=== PATIENT | male | born 1955 | race Caucasian/White ===

== ENCOUNTER 2024-11-17 12:40 | Inpatient (IN) | payer BC, MEDICARE ==
[~2024-11-17] VITALS: Wt 65.5 kg
[2024-11-17 12:40] VITALS: BP 171/89
[2024-11-17] MEDS ORDERED: Polyethylene Glycol 3350 Powder 17 GM PACKET PO PRN (13:00)
[2024-11-17] MEDS ORDERED: Docusate Sodium 100 MG CAP PO PRN (13:15)
[2024-11-17] MEDS ORDERED: Acetaminophen 500 MG TAB PO PRN (13:15)
[2024-11-17] MEDS ORDERED: NORVASC 5MG5 MG/TAB PO (14:37)
[2024-11-17] MEDS ORDERED: ASPIRIN E.C. 8181 MG (14:39)
[2024-11-17] MEDS ORDERED: CLOPIDOGREL PO (14:40)
[2024-11-17] MEDS ORDERED: INSULIN AS100 UNIT/4 (14:51)
[2024-11-17] MEDS ORDERED: HUMALOG KWIKPEN (14:53)
[2024-11-17] MEDS ORDERED: INSULIN 75/2100 U/ML SQ (15:02)
[2024-11-17] MEDS ORDERED: GLUCOPHAGE PO (15:08)
[2024-11-17] MEDS ORDERED: SODIUM CHLORIDE 0.9% (15:13)
[2024-11-17] MEDS ORDERED: ACETAMINOPHEN325 M1 (15:16)
[2024-11-17] MEDS ORDERED: DAPTOMYCIN (15:22)
[2024-11-17] MEDS ORDERED: Glucagon 1 MG VIAL IM PRN (15:30)
[2024-11-17] MEDS ORDERED: Dextrose (Glucose) 15 GM (4 x 3.75 GM) Chewable TAB PACK PO PRN (15:30)
[2024-11-17] MEDS ORDERED: Dextrose 50% Water 25 GM/50 ML SYRINGE IV PRN (15:30)
[2024-11-17] MEDS ORDERED: Insulin Lispro (HumaLOG) SQ SCH (17:00)
[2024-11-17] MEDS ORDERED: ERTAPENEM IV SCH (17:00)
[2024-11-17] MEDS ORDERED: WATER FOR INJECTION STERILE IV SCH (17:00)
[2024-11-17 19:57] VITALS: BP 154/78
[2024-11-17] MEDS ORDERED: metFORMIN 500 MG TAB PO SCH (21:00)
[2024-11-17] MEDS ORDERED: Insulin NPH/REG (NovoLIN 70/30) SQ SCH (21:00)
[2024-11-18 06:06] LABS: ALBUMIN 3.6 g/dL (3.4-4.8)
[2024-11-18 06:07] LABS: BASO # 0.02 K/mm3 (0.02-0.10); EOS # 0.18 K/mm3 (0.04-0.40); EOS % 1.5 % (0.0-4.0); HEMATOCRIT 35.8 % (42.0-52.0); HEMOGLOBIN 11.4 g/dL (13.5-18.0); LYMPH# 1.33 K/mm3 (1.50-4.00); MEAN CELL VOLUME 88 fl (78-100); MEAN CORPUSCULAR HEMOGLOBIN 28 pg (27-31); MEAN CORPUSCULAR HGB CONC 32 g/dL (33-37); MONO # 0.78 K/mm3 (0.20-0.80); NEU # 9.86 K/mm3 (1.40-6.50); PLATELET COUNT 504 K/mm3 (130-400); RED BLOOD COUNT 4.05 M/mm3 (4.20-5.60); RED CELL DISTRIBUTION WIDTH 14.2 % (11.5-14.5); WHITE BLOOD COUNT 12.2 K/mm3 (4.8-10.8)
[2024-11-18 06:08] LABS: CALCIUM 9.4 mg/dL (8.3-10.5)
[2024-11-18 06:09] LABS: TOTAL PROTEIN 7.2 g/dL (6.2-8.1)
[2024-11-18 06:15] LABS: TOTAL BILIRUBIN 0.1 mg/dL (0.2-1.2)
[2024-11-18 08:24] VITALS: BP 110/62
[2024-11-18] MEDS ORDERED: Clopidogrel 75 MG TAB PO SCH (09:00)
[2024-11-18] MEDS ORDERED: Insulin NPH/REG (NovoLIN 70/30) SQ SCH (09:00)
[2024-11-18] MEDS ORDERED: amLODIPine 5 MG TAB PO SCH (09:00)
[2024-11-18] MEDS ORDERED: DAPTOmycin 500 MG in NS 10 ML IV SCH (15:00)
[2024-11-18 20:08] VITALS: BP 133/71
[2024-11-19 07:31] VITALS: BP 100/58
[2024-11-19] MEDS ORDERED: Multivitamin TAB PO SCH (09:00)
[2024-11-19] MEDS ORDERED: Multimineral/Multivitamin Oral Soln 1 DOSE/15 ML PO SCH (09:00)
[2024-11-19 19:31] VITALS: BP 114/56
[2024-11-20 06:16] LABS: BASO # 0.02 K/mm3 (0.02-0.10); EOS # 0.27 K/mm3 (0.04-0.40); EOS % 3.2 % (0.0-4.0); HEMATOCRIT 35.8 % (42.0-52.0); HEMOGLOBIN 11.4 g/dL (13.5-18.0); LYMPH# 1.82 K/mm3 (1.50-4.00); MEAN CELL VOLUME 88 fl (78-100); MEAN CORPUSCULAR HEMOGLOBIN 28 pg (27-31); MEAN CORPUSCULAR HGB CONC 32 g/dL (33-37); NEU # 5.66 K/mm3 (1.40-6.50); PLATELET COUNT 457 K/mm3 (130-400); RED BLOOD COUNT 4.06 M/mm3 (4.20-5.60); RED CELL DISTRIBUTION WIDTH 14.3 % (11.5-14.5); WHITE BLOOD COUNT 8.5 K/mm3 (4.8-10.8)
[2024-11-20 06:25] LABS: ALBUMIN 3.6 g/dL (3.4-4.8)
[2024-11-20 06:26] LABS: CALCIUM 9.4 mg/dL (8.3-10.5)
[2024-11-20 06:27] LABS: TOTAL PROTEIN 6.8 g/dL (6.2-8.1)
[2024-11-20 06:29] LABS: TOTAL BILIRUBIN 0.2 mg/dL (0.2-1.2)
[2024-11-20 07:00] VITALS: BP 113/64
[2024-11-20 19:10] VITALS: BP 135/70
[2024-11-21 07:00] VITALS: BP 118/70
[2024-11-21 19:30] VITALS: BP 143/69
[2024-11-22 08:22] VITALS: BP 113/64
[2024-11-22 19:00] VITALS: BP 124/63
[2024-11-22] MEDS ORDERED: Insulin Lispro (HumaLOG) SQ SCH (21:00)
[2024-11-23 07:00] VITALS: BP 135/71
[2024-11-23 19:00] VITALS: BP 126/66
[2024-11-24 07:00] VITALS: BP 127/66
[2024-11-24] MEDS ORDERED: Lidocaine 2% Jelly 5 GM TUBE TOP ONE (10:16)
[2024-11-24 19:00] VITALS: BP 105/57
[2024-11-25 07:00] VITALS: BP 109/61
[2024-11-25 08:18] LABS: BASO # 0.03 K/mm3 (0.02-0.10); EOS # 0.28 K/mm3 (0.04-0.40); EOS % 3.9 % (0.0-4.0); HEMATOCRIT 33.5 % (42.0-52.0); HEMOGLOBIN 10.5 g/dL (13.5-18.0); LYMPH# 1.78 K/mm3 (1.50-4.00); MEAN CELL VOLUME 89 fl (78-100); MEAN CORPUSCULAR HEMOGLOBIN 28 pg (27-31); MEAN CORPUSCULAR HGB CONC 31 g/dL (33-37); MEAN PLATELET VOLUME 10.1 fl (7.4-10.4); MONO # 0.66 K/mm3 (0.20-0.80); NEU # 4.33 K/mm3 (1.40-6.50); PLATELET COUNT 351 K/mm3 (130-400); RED BLOOD COUNT 3.77 M/mm3 (4.20-5.60); RED CELL DISTRIBUTION WIDTH 14.3 % (11.5-14.5); WHITE BLOOD COUNT 7.1 K/mm3 (4.8-10.8)
[2024-11-25 08:22] LABS: ALBUMIN 3.3 g/dL (3.4-4.8)
[2024-11-25 08:23] LABS: SODIUM 141 mmol/L (136-145)
[2024-11-25 08:24] LABS: CALCIUM 8.7 mg/dL (8.3-10.5)
[2024-11-25 08:25] LABS: GLUCOSE 84 mg/dL (75-110); TOTAL PROTEIN 6.2 g/dL (6.2-8.1)
[2024-11-25 08:26] LABS: CARBON DIOXIDE 22 mmol/L (23-31)
[2024-11-25 08:27] LABS: TOTAL BILIRUBIN 0.2 mg/dL (0.2-1.2)
[2024-11-25 08:30] LABS: AST-SGOT 27 U/L (5-34)
[2024-11-25 08:32] LABS: ALT/SGPT 30 U/L (0-55)
[2024-11-25 19:52] VITALS: BP 133/71
[2024-11-26 07:18] VITALS: BP 119/64
[2024-11-26 18:58] VITALS: BP 134/67
[2024-11-27 07:25] VITALS: BP 142/63
[2024-11-27] MEDS ORDERED: Lidocaine 2% Jelly 5 GM TUBE TOP PRN (13:45)
[2024-11-27 19:00] VITALS: BP 145/67
[2024-11-28 07:00] VITALS: BP 133/63; BP 151/74
[2024-11-28 19:59] VITALS: BP 119/53
[2024-11-29 07:00] VITALS: BP 104/63
[2024-11-29 19:00] VITALS: BP 121/63
[2024-11-30 07:17] VITALS: BP 141/68
[2024-11-30 19:00] VITALS: BP 122/64; BP_SYST 64
[2024-12-01 07:31] VITALS: BP 116/63
[2024-12-01 19:25] VITALS: BP 103/61
[2024-12-02 07:32] VITALS: BP 118/66
[2024-12-02 08:20] LABS: BASO # 0.03 K/mm3 (0.02-0.10); EOS # 0.46 K/mm3 (0.04-0.40); HEMATOCRIT 35.8 % (42.0-52.0); HEMOGLOBIN 11.3 g/dL (13.5-18.0); LYMPH# 1.57 K/mm3 (1.50-4.00); MEAN CELL VOLUME 88 fl (78-100); MEAN CORPUSCULAR HEMOGLOBIN 28 pg (27-31); MEAN CORPUSCULAR HGB CONC 32 g/dL (33-37); MEAN PLATELET VOLUME 10.8 fl (7.4-10.4); MONO # 0.67 K/mm3 (0.20-0.80); NEU # 6.45 K/mm3 (1.40-6.50); PLATELET COUNT 260 K/mm3 (130-400); RED BLOOD COUNT 4.06 M/mm3 (4.20-5.60); WHITE BLOOD COUNT 9.2 K/mm3 (4.8-10.8)
[2024-12-02 08:25] LABS: ALBUMIN 3.7 g/dL (3.4-4.8)
[2024-12-02 08:26] LABS: CALCIUM 9.4 mg/dL (8.3-10.5)
[2024-12-02 08:27] LABS: TOTAL PROTEIN 6.9 g/dL (6.2-8.1)
[2024-12-02 08:29] LABS: TOTAL BILIRUBIN 0.3 mg/dL (0.2-1.2)
[2024-12-02 19:00] VITALS: BP 119/66
[2024-12-03 07:17] VITALS: BP 120/71
[2024-12-03 19:00] VITALS: BP 112/61
[2024-12-04 07:00] VITALS: BP 114/64
[2024-12-04 19:00] VITALS: BP 110/64
[2024-12-05 07:30] VITALS: BP 106/65
[2024-12-05 19:30] VITALS: BP 96/58
[2024-12-06 07:00] VITALS: BP 122/69
[2024-12-06 19:00] VITALS: BP 128/68
[2024-12-07 07:00] VITALS: BP 111/61
[2024-12-07 19:00] VITALS: BP 121/71
[2024-12-08 07:15] VITALS: BP 129/63
[2024-12-08 19:00] VITALS: BP 113/67
[2024-12-09 06:42] LABS: BASO # 0.02 K/mm3 (0.02-0.10); EOS # 0.55 K/mm3 (0.04-0.40); EOS % 7.2 % (0.0-4.0); HEMATOCRIT 35.4 % (42.0-52.0); HEMOGLOBIN 11.2 g/dL (13.5-18.0); LYMPH# 1.43 K/mm3 (1.50-4.00); MEAN CELL VOLUME 89 fl (78-100); MEAN CORPUSCULAR HEMOGLOBIN 28 pg (27-31); MEAN CORPUSCULAR HGB CONC 32 g/dL (33-37); MEAN PLATELET VOLUME 11.1 fl (7.4-10.4); MONO # 0.59 K/mm3 (0.20-0.80); NEU # 4.97 K/mm3 (1.40-6.50); PLATELET COUNT 251 K/mm3 (130-400); RED CELL DISTRIBUTION WIDTH 14.1 % (11.5-14.5); WHITE BLOOD COUNT 7.6 K/mm3 (4.8-10.8)
[2024-12-09 06:50] LABS: ALBUMIN 3.7 g/dL (3.4-4.8)
[2024-12-09 06:52] LABS: TOTAL PROTEIN 6.9 g/dL (6.2-8.1)
[2024-12-09 06:54] LABS: TOTAL BILIRUBIN 0.2 mg/dL (0.2-1.2)
[2024-12-09 07:00] VITALS: BP 118/68
[2024-12-09 19:25] VITALS: BP 121/61
[2024-12-10 07:00] VITALS: BP 125/66
[2024-12-10 19:00] VITALS: BP 120/66
[2024-12-11 07:36] VITALS: BP 126/64
[2024-12-11 19:00] VITALS: BP 131/66
[2024-12-12 08:38] VITALS: BP 120/64
[2024-12-12 19:35] VITALS: BP 115/66
[2024-12-13 07:56] VITALS: BP 109/71
[2024-12-13 19:00] VITALS: BP 148/75
[2024-12-14 07:00] VITALS: BP 132/71
[2024-12-14] MEDS ORDERED: ACETAMINOPHEN-H1 TA2 PO (10:22)
[2024-12-14] MEDS ORDERED: ASPIRIN E.C. 8181 MG PO (10:22)
[2024-12-14] MEDS ORDERED: CLOPIDOGREL PO (10:22)
[2024-12-14] MEDS ORDERED: NORVASC 5MG5 MG/TAB PO (10:22)
[2024-12-14] MEDS ORDERED: GLUCOPHAGE PO (10:22)
== END 2024-12-14 13:10 | disposition home or self-care (01) | DRG 638 ==
LOC: MED/SURG 12:40
PROVIDERS: ADMIT Internal Medicine
DX: E11.69 Type 2 diabetes mellitus with other specified complication (principal); L97.319 Non-pressure chronic ulcer of right ankle with unspecified severity; L97.419 Non-pressure chronic ulcer of right heel and midfoot with unspecified severity; M86.9 Osteomyelitis, unspecified; L97.819 Non-pressure chronic ulcer of other part of right lower leg with unspecified severity; E11.621 Type 2 diabetes mellitus with foot ulcer; E11.65 Type 2 diabetes mellitus with hyperglycemia; E11.40 Type 2 diabetes mellitus with diabetic neuropathy, unspecified; E11.51 Type 2 diabetes mellitus with diabetic peripheral angiopathy without gangrene; E11.622 Type 2 diabetes mellitus with other skin ulcer; B35.1 Tinea unguium; K59.00 Constipation, unspecified; E78.2 Mixed hyperlipidemia; I10 Essential (primary) hypertension; N28.9 Disorder of kidney and ureter, unspecified; F17.200 Nicotine dependence, unspecified, uncomplicated; Z79.84 Long term (current) use of oral hypoglycemic drugs; Z95.820 Peripheral vascular angioplasty status with implants and grafts; Z79.82 Long term (current) use of aspirin; Z79.02 Long term (current) use of antithrombotics/antiplatelets; Z79.899 Other long term (current) drug therapy
CPT/HCPCS: A6021; A6197; A6248; J0878; J1335; J1815